=== PATIENT | male | born 1980 | race Caucasian/White ===

== ENCOUNTER → 2016-09-24 | Outpatient (CLI) | payer MEDICAID, OTHER ==
[~2016-09-24] MED LIST: ADDE30TA PO; AMBI12.52 PO; CYCL10TA PO; E-Z-PAQUE 96% w/w SUSP 176GM BTL As Ordered ONE; NEUR300C PO; PAXI10TA2 PO; ULTR50TA PO; XANA1TAB2 PO
--- NOTE | 2016-09-24 09:46 | REP ---
Clinical: Abdominal pain/distension. Technique: Single supine view of the abdomen and pelvis. Findings: Bowel gas pattern is nonspecific. No organomegaly. No abnormal calcifications. Skeletal structures are intact. Phleboliths noted in the pelvis. Impression: Nonspecific bowel gas pattern. Signed by Hernandez Alves MD 09/24/2016 09:38 A
== END ==
LOC: M RAD 08:10
PROVIDERS: ATTEND Internal Medicine
DX: K56.1 Intussusception (principal)

== ENCOUNTER → 2016-11-04 | Outpatient (CLI) | payer OTHER ==
[~2016-11-04] MED LIST changes: +E-Z PAQUE 60% w/v SUSP 355ML BOTTLE As Ordered ONE; -E-Z-PAQUE 96% w/w SUSP 176GM BTL As Ordered ONE
--- NOTE | 2016-11-04 16:03 | REP ---
SMALL BOWEL FOLLOW-THROUGH: The procedure was performed under the direct supervision of Dr. Bunn. The images were reviewed with Dr. Bunn. The canceling machine operator film shows no organomegaly or pathological masses. The intestinal gas pattern is nonspecific. Liquid barium was administered and the barium column was followed through the small bowel to the level of the terminal ileum. Small bowel transit time was approximately 4 hours. During fluoroscopy gentle palpation shows all loops are freely movable and pliable. There are no fixed or angulated loops. The small bowel mucosal pattern is normal in course and caliber. There is no transition to suggest a partial small bowel obstruction. Spot filming of terminal ileum shows it to be unremarkable. IMPRESSION: Small bowel follow-through examination within normal limits. 52 seconds of fluoroscopy time was utilized for this procedure. Reviewed by ELIZABETH Davies 11/04/2016 04:31 PEdited and Signed by Sukhjinder Bunn MD 11/04/2016 05:00 P
== END ==
LOC: M RAD 08:51
PROVIDERS: ATTEND Internal Medicine
DX: R10.9 Unspecified abdominal pain (principal)

== ENCOUNTER 2019-07-20 07:32 | Emergency (ER) | payer OTHER ==
[~2019-07-20] VITALS: Ht 170.2 cm; Wt 91.6 kg
[2019-07-20 07:32] VITALS: BP 145/101
[~2019-07-20 07:32] MED LIST changes: -E-Z PAQUE 60% w/v SUSP 355ML BOTTLE As Ordered ONE; -ULTR50TA PO; +ULTR50TA8 PO
[2019-07-20] MEDS ORDERED: MELOXICAM (MOBIC) 7.5 MG TAB PO ONE (08:00)
--- NOTE | 2019-07-20 08:39 | REP ---
RIGHT KNEE SERIES: Five views. HISTORY: Medial right knee pain. FINDINGS: Five views of the right knee demonstrate nonarticular spurring at the superior pole patella consistent with chronic quadriceps tendonitis tendinosis. There is mild articular spurring of the inferior pole the patella on the lateral radiograph and some spurring is seen laterally on the sunrise view consistent with mild patellofemoral osteoarthritis. Bones, joints and soft tissues are otherwise unremarkable. IMPRESSION: Mild patellar spurring as above. No acute bony abnormality. Electronically Signed by Cricket Harley MD 07/20/2019 05:36 P
[2019-07-20] MEDS ORDERED: MOBI4TAB PO (08:56)
== END 2019-07-20 09:12 | disposition home or self-care (01) ==
LOC: M ED 07:32
DX: M17.11 Unilateral primary osteoarthritis, right knee (principal); G47.33 Obstructive sleep apnea (adult) (pediatric); Z88.5 Allergy status to narcotic agent; Z91.030 Bee allergy status; Z91.040 Latex allergy status; F17.210 Nicotine dependence, cigarettes, uncomplicated